=== PATIENT | male | born 1975 | race Two or more races ===

== ENCOUNTER 2019-03-27 14:09 | Inpatient (IN) | payer OTHER ==
[~2019-03-27] VITALS: Ht 182.9 cm; Wt 105.2 kg
[2019-04-02] MEDS ORDERED: COZAAR100 MG PO (14:18)
[2019-04-13] MEDS ORDERED: SIMETHICONE125 M1 PO (11:00)
[2019-04-13] MEDS ORDERED: HYOSCYAMINE0.125 M1 SL (11:00)
[2019-04-13] MEDS ORDERED: PERCOCET 5-3251 EACH PO (11:01)
== END 2019-04-13 13:50 | disposition home or self-care (01) | DRG 330 ==
LOC: O/R 04-09 10:50 → SURG 04-09 13:30 → SURH 04-09 22:20
PROVIDERS: ADMIT Colon & Rectal Surgery
PROC: 0DJD8ZZ Inspection of Lower Intestinal Tract, Via Natural or Artificial Opening Endoscopic (ICD-10-PCS; 2019-04-09)
PROC: B246ZZZ Ultrasonography of Right and Left Heart (ICD-10-PCS; 2019-04-09)
PROC: 4A033R1 Measurement of Arterial Saturation, Peripheral, Percutaneous Approach (ICD-10-PCS; 2019-04-09)
PROC: 0DTN4ZZ Resection of Sigmoid Colon, Percutaneous Endoscopic Approach (ICD-10-PCS; principal; 2019-04-09 14:45)
PROC: 3E0F7GC Introduction of Other Therapeutic Substance into Respiratory Tract, Via Natural or Artificial Opening (ICD-10-PCS; 2019-04-10)
PROC: 4A12X4Z Monitoring of Cardiac Electrical Activity, External Approach (ICD-10-PCS; 2019-04-10)
PROC: B32TZZZ Computerized Tomography (CT Scan) of Left Pulmonary Artery (ICD-10-PCS; 2019-04-10)
PROC: B32SZZZ Computerized Tomography (CT Scan) of Right Pulmonary Artery (ICD-10-PCS; 2019-04-10)
DX: K57.20 Diverticulitis of large intestine with perforation and abscess without bleeding (principal); J95.89 Other postprocedural complications and disorders of respiratory system, not elsewhere classified; J98.11 Atelectasis; I97.191 Other postprocedural cardiac functional disturbances following other surgery; G47.33 Obstructive sleep apnea (adult) (pediatric); I11.9 Hypertensive heart disease without heart failure; R09.02 Hypoxemia; I48.0 Paroxysmal atrial fibrillation

== ENCOUNTER 2020-10-05 14:14 | Outpatient (CLI) | payer OTHER ==
[~2020-10-05 14:14] MED LIST: COZAAR100 MG PO; HYOSCYAMINE0.125 M1 SL; PERCOCET 5-3251 EACH PO; SIMETHICONE125 M1 PO
== END 2020-10-05 14:28 | disposition home or self-care (01) ==
LOC: RAD 14:14
PROVIDERS: ATTEND Orthopaedic Surgery
DX: M25.571 Pain in right ankle and joints of right foot (principal); M25.572 Pain in left ankle and joints of left foot